=== PATIENT | male | born 1995 | race Caucasian/White ===

== ENCOUNTER 2019-03-29 18:20 | Emergency (ER) | payer SELFPAY ==
[~2019-03-29] VITALS: Ht 182.9 cm; Wt 75.7 kg
--- NOTE | 2019-03-29 18:26 | NUR ---
CAME IN FOR ALLERGIC REACTION, "ate something I was allergic to around 3pm now I feel SOB/Chest tight", TO ER BED 11, HOOKED TO MONITOR, CHANGED TO GOWN, PROVIDED W WARM BLANKET, PT AOx 4, AWAITING MD LEE
--- NOTE | 2019-03-29 18:39 | NUR ---
DR CARMEN AT BEDSIDE FOR EVAL.
[2019-03-29] MEDS ORDERED: predniSONE 20 MG TABLET ONE (18:46)
[2019-03-29] MEDS ORDERED: ALBUTEROL FS 2.5 MG/0.5 ML VIAL.NEB ONE (18:53)
--- NOTE | 2019-03-29 18:58 | NUR ---
RT AT BEDSIDE, STARTED W BREATHING TX
[2019-03-29] MEDS ORDERED: predniSONE 20 MG TABLET PO ONE (19:00)
[2019-03-29] MEDS ORDERED: ALBUTEROL FS 2.5 MG/0.5 ML VIAL.NEB NEB ONE (19:00)
--- NOTE | 2019-03-29 19:17 | NUR ---
PT RECEIVED IN BED AAOX4. NO RESP DISTRESS. LUNG SOUNDS CLEAR. PT VERBALIZES THAT HIS BREATHING IS BETTER.
--- NOTE | 2019-03-29 19:35 | NUR ---
REPORT GIVEN TO LAVERNE VALDEZ FOR SANDY
[2019-03-29 19:38] VITALS: BP 139/69
--- NOTE | 2019-03-29 19:54 | NUR ---
Patient discharged to home in stable condition. Written and verbal after care instructions given. Patient verbalizes understanding of instruction. Pt ambulatory with a steady gait
== END 2019-03-29 19:54 | disposition home or self-care (01) ==
LOC: ER 18:22
DX: T78.1XXA Other adverse food reactions, not elsewhere classified, initial encounter (principal); J45.909 Unspecified asthma, uncomplicated; X58.XXXA Exposure to other specified factors, initial encounter
CPT/HCPCS: 94640; 99283; J7512